=== PATIENT | female | born 1995 | race Two or more races ===

== ENCOUNTER 2019-12-21 23:01 | Emergency (ER) | payer OTHER ==
[~2019-12-21] VITALS: Ht 167.6 cm; Wt 92.5 kg
--- NOTE | 2019-12-21 23:02 | NUR ---
ED Nurse Note: Walk-in patient with complaints of slipping and falling down some stairs while viewing an apartment. Patient reports falling hard on her butt around 1600 today. Patient reports initial pain level of 8/10 but current pain level of 6/10.
--- NOTE | 2019-12-21 23:25 | Emergency Room Report ---
History of Present Illness General Chief Complaint: Multiple Trauma/Fall Source: Patient Present Illness HPI This a 24-year-old female with no past medical history. She presents with chief complaint of slip and fall. She complained of right buttock and thigh pain. Also with head injury. She says she slipped down 5 steps. She landed on her right buttock and hip area. She did not hit her head. Did not pass out. This occurred around 4 PM. Since then she complained of pain to the right hip and thigh area. Worse with patient. Better with rest. No fever chills but no nausea no vomiting. No loss of consciousness. He does 8 out of 10. Allergies: Coded Allergies: No Known Allergies (Unverified , 12/21/19) COVID-19 Screening Contact w/high risk pt: No Experienced COVID-19 symptoms?: No COVID-19 Testing performed PASTRY BAKER: No Patient History Past Medical History: see triage record, old chart reviewed Past Surgical History: none Pertinent Family History: none Social History: Denies: smoking Last Menstrual Period: LAST MONTH Now: No : 0 Para: 0 Immunizations: other Reviewed Nursing Documentation: PMH: Agreed; PSxH: Agreed Nursing Documentation-PMH Past Medical History: No Stated History Review of Systems Eye: Denies: eye pain, blurred vision ENT: Denies: ear pain, nose congestion, throat swelling Respiratory: Denies: cough, shortness of breath Cardiovascular: Denies: chest pain, palpitations Gastrointestinal: Denies: abdominal pain, diarrhea, nausea, vomiting Musculoskeletal: Reports: muscle pain; Denies: back pain, joint pain Skin: Denies: rash Neurological: Denies: headache, numbness Endocrine: Denies: increased thirst, increased urine Hematologic/Lymphatic: Denies: easy bruising All Other Systems: negative except mentioned in HPI Physical Exam Vital Signs Date Time Temp Pulse Resp B/P (MAP) Pulse Ox O2 Delivery O2 Flow Rate FiO2 12/21/19 23:10 98.4 65 20 124/85 (98) 99 Room Air Vitals normal Sp02 EP Interpretation: reviewed, normal General Appearance: well appearing, no apparent distress, alert Head: normocephalic, other - Tenderness to the left occipital area. No hematoma. Eyes: bilateral eye PERRL, bilateral eye EOMI ENT: hearing grossly normal, normal pharynx Neck: full range of motion, supple, no meningismus Respiratory: chest non-tender, lungs clear, normal breath sounds Cardiovascular #1: regular rate, rhythm, no murmur Gastrointestinal: normal bowel sounds, non tender, no mass, no organomegaly, no bruit, non-distended Musculoskeletal: back normal, normal range of motion, gait/station normal, other - Right thigh and hip: Tenderness but no ecchymosis. Full range of motion. Psychiatric: mood/affect normal Medical Decision Making Diagnostic Impression: Primary Impression: Head injury, acute Qualified Codes: S09.90XA - Unspecified injury of head, initial encounter Additional Impression: Contusion of thigh, right Qualified Codes: S70.11XA - Contusion of right thigh, initial encounter ER Course Patient with soft tissue injuries. No fracture or dislocation. No bleed. Other X-Ray Diagnostic Results Other X-Ray Diagnostic Results : X-Ray ordered: Right hip and pelvis x-rays # of Views/Limited Vs Complete: 2 View Indication: Pain EP Interpretation: Yes Interpretation: no dislocation, no soft tissue swelling, no fractures Impression: No acute disease Electronically Signed by: Hugo Villalba MD CT/MRI/US Diagnostic Results CT/MRI/US Diagnostic Results : Imaging Test Ordered: CT head Impression Negative per radiologist Last Vital Signs Date Time Temp Pulse Resp B/P (MAP) Pulse Ox O2 Delivery O2 Flow Rate FiO2 12/21/19 23:10 98.4 65 20 124/85 (98) 99 Room Air Status: improved Disposition: HOME, SELF-CARE Condition: Stable Scripts Ibuprofen* (MOTRIN*) 600 Mg Tablet 600 MG ORAL Q6H PRN for For Pain, #30 TAB 0 Refills Prov: Hugo Villalba MD 12/22/19 Referrals: [facility]ERR[facility] (PCP) Additional Instructions: Follow-up with your doctor in 7 days. Return if symptoms worsen. Hugo Villalba MD Dec 21, 2019 23:25
--- NOTE | 2019-12-22 | Diagnostic Imaging Report ---
EXAM: CT Head Without Intravenous Contrast CLINICAL HISTORY: TRAUMA TECHNIQUE: Axial computed tomography images of the head/brain without intravenous contrast. CTDI is 53.4 mGy and DLP is 1045.5 mGy-cm. One or more of the following dose reduction techniques were used: automated exposure control, adjustment of the mA and/or kV according to patient size, use of iterative reconstruction technique. COMPARISON: None available. FINDINGS: Brain: Unremarkable. No hemorrhage. No significant white matter disease. No edema. Ventricles: Unremarkable. No ventriculomegaly. Bones/joints: Unremarkable. No acute fracture. Soft tissues: Unremarkable. Sinuses: Mild bilateral maxillary and ethmoidal sinus mucosal thickening. Mastoid air cells: Unremarkable as visualized. No mastoid effusion. IMPRESSION: 1. No acute intracranial abnormality. 2. Mild maxillary and bilateral ethmoidal sinus disease.
[2019-12-22 00:16] VITALS: BP 124/85
[2019-12-22] MEDS ORDERED: IBUPROFEN600 M1 ORAL (00:21)
[2019-12-22 00:25] VITALS: BP 124/85
--- NOTE | 2019-12-22 00:25 | NUR ---
ER DISCHARGE NOTE: Patient is cleared to be discharged per ERMD. Patient verbalized understanding of discharge instructions. ID band removed. patient departed with all belongings in stable condition.
--- NOTE | 2019-12-22 13:55 | Diagnostic Imaging Report ---
Indication: Pain, trauma, right buttock and thigh pain status post slip and fall Technique: One view the pelvis, one view of the right hip Comparison: none Findings: No acute fractures. No dislocations. The joint spaces are preserved. Impression: Negative
== END 2019-12-22 00:25 | disposition home or self-care (01) ==
LOC: EMR 23:18
DX: S09.90XA Unspecified injury of head, initial encounter (principal); S70.11XA Contusion of right thigh, initial encounter; W10.9XXA Fall (on) (from) unspecified stairs and steps, initial encounter; Y93.01 Activity, walking, marching and hiking; Y92.9 Unspecified place or not applicable
CPT/HCPCS: 70450; 73501; Z7502; 99284